=== PATIENT | female | born 1955 | race Caucasian/White ===

== ENCOUNTER 2018-05-21 10:20 | Emergency (ER) | payer BC, SELFPAY ==
[2018-05-21 10:27] VITALS: BP 132/83; PULSE 95; RESP 16; TEMP 36.6; O2SAT 100; BMI 24.9
--- NOTE | 2018-05-21 10:29 | ED.LOWEXIN ---
HPI - Extremity Injury (Lower) General Chief Complaint: Extremity Injury, Lower Stated Complaint: twisted right ankle/swelling Time Seen by Provider: 05/21/18 10:22 Source: patient Mode of arrival: ambulatory Limitations: no limitations History of Present Illness HPI Narrative: 63-year-old female here for evaluation of right ankle/foot injury. Patient states that she was wearing shoes yesterday and [place] around a family member when she twisted her right ankle. She states that she immediately went home and put ice on it. Has been ambulatory but with pain. She reports swelling to the outside of her right foot. She states that when she is not walking the pain is not bad however she does get pain along the bottom of her foot with standing. Related Data Home Medications Medication Instructions Recorded Confirmed cholecalciferol (vitamin D3) 2,000 unit PO Q DAY #0 05/18/16 [Vitamin D3] Allergies Allergy/AdvReac Type Severity Reaction Status Date / Time shellfish derived Allergy Severe GENERALIZED Unverified 01/31/18 11:53 [SHELLFISH DERIVED] SWELLING gluten [GLUTEN] Allergy Intermediate CRAMPS, Unverified 01/31/18 11:53 RASH milk [MILK] AdvReac Intermediate BRONCHITIS Unverified 01/31/18 11:53 Review of Systems Musculoskeletal Comments: Right foot pain with standing Integumentary/Breasts Comments: Swelling to the right foot however no other skin lesions Neurologic Comments: No numbness or tingling right foot Hematologic/Lymphatic Denies easy bleeding and Denies easy bruising [facility] Medical History Healthy adult (Acute) Social History Smoking Status: Never smoker Comment: Reviewed patient's past medical surgical family and social history Exam Initial Vital Signs Initial Vital Signs: Vital Signs Temperature 98 F 05/21/18 10:27 Pulse Rate 95 H 05/21/18 10:27 Respiratory Rate 16 05/21/18 10:27 Blood Pressure 132/83 H 05/21/18 10:27 Pulse Oximetry 100 05/21/18 10:27 HENMT Head: normal to inspection, normocephalic and atraumatic Resp Effort & Inspection: normal respiratory effort Cardio Pulses: dorsalis pedis present on the right Skin Lesions: no lesions Rashes: no rashes Neuro Other: Sensation intact to light touch right lower extremity Extrem Other: Right proximal fibula unremarkable Right lower leg unremarkable Right ankle unremarkable No tenderness to palpation along the Achilles tendon or medial or lateral malleolus Patient with tenderness to palpation along the base of the 5th metatarsal Psych Appearance: grossly normal and well kempt Course Orders Ordered: ED Orders 05/21/18 10:31 XR ankle RT min 3V Stat 05/21/18 10:33 XR foot RT min 3V Stat Vital Signs - 8 hr 05/21/18 10:27 Temperature 98 F Pulse Rate 95 H Respiratory Rate 16 Blood Pressure 132/83 H Pulse Oximetry 100 MDM - Extremity Injury (Lower) Imaging Data Foot x-ray: Radiologist's impression: PROCEDURE: XR ANKLE RT MIN 3V INDICATIONS: twisted R ankle TECHNIQUE: 3 views of the ankle were acquired. COMPARISON: [facility], , XR FOOT RT MIN 3V, 05/21/2018, 10:53. FINDINGS: Bones: On the lateral view, there is visualization of a mildly displaced fracture of the proximal 5th metatarsal. No additional fractures are detected. No suspicious lytic or blastic lesions are seen. Soft tissues: Mild soft tissue swelling is seen. IMPRESSION: Mildly displaced proximal 5th metatarsal fracture. Dictated by: Allen Mendoza M.D. on 05/21/2018 at 10:16 Approved by: Allen Mendoza M.D. on 05/21/2018 at 10:17 Ankle x-ray: Radiologist's impression: PROCEDURE: XR FOOT RT MIN 3V INDICATIONS: twisted R ankle with pain,swelling,brusing to Lateral R foot TECHNIQUE: 3 views of the foot were acquired. COMPARISON: [facility], , XR TOE RIGHT, 03/10/2003, 11:24. [facility], , XR ANKLE RT MIN 3V, 05/21/2018, 10:53. FINDINGS: Bones: There is a mildly displaced, comminuted fracture of the proximal 5th metatarsal. On one view, intra-articular involvement is suspected. No additional fractures are detected. No suspicious lytic or blastic lesions are seen. Soft tissues: Mild soft tissue swelling is seen. IMPRESSION: Comminuted proximal 5th metatarsal fracture, with suspected intra-articular involvement. Dictated by: Allen Mendoza M.D. on 05/21/2018 at 10:17 Approved by: Allen Mendoza M.D. on 05/21/2018 at 10:19 [facility] Narrative Medical decision making narrative: Patient is neurovascularly intact. X-ray evidence shows a proximal 5th metatarsal fracture consistent with a Deleon fracture. Patient is visiting from [place]. Will place the patient in a posterior short leg splint. We will provide crutches. Patient was instructed on being nonweightbearing in the importance for follow-up. She was given the follow-up for the local orthopedic group however she may wait until she returns home for follow-up. She was given return precautions. She expressed understanding and agreement with plan. Discharge Plan Departure Patient Disposition: Home, Self-Care Clinical Impression: Foot fracture, right Instructions: How to Use Crutches, Foot Fracture, How to Take Care of Your Splint Activity Restrictions/Additional Instructions: Your diagnosed with a fifth metatarsal fracture. This is also known as a dancer's fracture and also known as a Deleon fracture. Your placed in a splint. The splint needs to stay on. You need to keep it clean and keep it dry. You are to be nonweightbearing on your right lower extremity. You can contact the [facility] at [phone] for a follow-up. If you would like to wait and to you return home for followup I would recommend that you contact your primary doctor why you are still in this area to set up a follow-up appointment. Return to the emergency department for any new or worsening symptoms. Prescriptions: No Action cholecalciferol (vitamin D3) [Vitamin D3] 2,000 UNIT capsule 2,000 unit PO Q DAY Qty: 0 RF: 0
--- NOTE | 2018-05-21 10:33 | DI.RAD.S_ITS ---
PROCEDURE: XR FOOT RT MIN 3V INDICATIONS: twisted R ankle with pain,swelling,brusing to Lateral R foot TECHNIQUE: 3 views of the foot were acquired. COMPARISON: [facility], RG, XR TOE RIGHT, 03/10/2003, 11:24. [facility], CR, XR ANKLE RT MIN 3V, 05/21/2018, 10:53. FINDINGS: Bones: There is a mildly displaced, comminuted fracture of the proximal 5th metatarsal. On one view, intra-articular involvement is suspected. No additional fractures are detected. No suspicious lytic or blastic lesions are seen. Soft tissues: Mild soft tissue swelling is seen. IMPRESSION: Comminuted proximal 5th metatarsal fracture, with suspected intra-articular involvement. Dictated by: Allen Mendoza M.D. on 05/21/2018 at 10:17 Approved by: Allen Mendoza M.D. on 05/21/2018 at 10:19
[2018-05-21 12:28] VITALS: BP 118/82; PULSE 78; RESP 12; O2SAT 97
== END 2018-05-21 12:30 | disposition home or self-care (01) ==
PROVIDERS: Emergency Provider Emergency Medicine; Family Provider Family Medicine; PCP Family Medicine
DX: S92.901A Unspecified fracture of right foot, initial encounter for closed fracture (principal); Y93.9 Activity, unspecified
CPT/HCPCS: 29505; 73610; 73630; 99283